=== PATIENT | female | born 1960 | race Caucasian/White ===

== ENCOUNTER 2020-01-08 23:16 | Inpatient (IN) | payer MEDICARE ==
[~2020-01-08] VITALS: Ht 157.5 cm; Wt 75.5 kg
--- NOTE | 2020-01-08 23:21 | PHYS DOC ---
Past History Past Medical History: Anemia, Diabetes, Fibromyalgia, High Cholesterol, Hypertension Adult General Chief Complaint Chief Complaint: ".. I .. having some low.. sugar levels.. dizzy.. I have had some diarrhea the last couple days. .. I ve been taking... glimepride.. for my diabetes.. .. I don't know the.. dosage... I did..nt bring the bottle.. I am so weak.. "I..feel like maybe flu.. like.." HPI HPI Patient is a 59 year old female who presents with above hx and complaints of hypoglycemia and generalized weakness.. 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 However by time of arrival glucose again at 49. Patient reports compliance with diet and meds for diabetes. No recent travel or specific ill contacts. No history immunosuppression. Patient reports couple days of loose stool. No history of bad food intake. Pt. normally follows with Dr. Carrero. Review of Systems Review of Systems Constitutional: Subjective complaints of fever and chills Eyes: Denies change in visual acuity, redness, or eye pain [] HENT: Denies nasal congestion or sore throat [] Respiratory: Complaints of a nonproductive cough and some shortness of breath/wheezing Cardiovascular: No additional information not addressed in HPI [] GI: Denies abdominal pain, complaints of nausea, denies vomiting, bloody stools. Complaints of diarrhea [] : Complaints of dysuria and urinary retention Musculoskeletal: Complaints of generalized weakness and myalgia arthralgia and malaise Integument: Denies rash or skin lesions [] Neurologic: Denies headache, focal weakness or sensory changes [] Endocrine: History of polyuria or polydipsia [] All other systems were reviewed and found to be within normal limits, except as documented in this note. Family History Family History Diabetes hypertension Current Medications Current Medications See nursing for home meds Allergies Allergies See nursing Physical Exam Physical Exam Constitutional: Moderate acute distress, ill in appearance. [] HENT: Normocephalic, atraumatic, bilateral external ears normal, oropharynx dry, mild edema, postnasal drainage, no oral exudates, nose mild injection of turbinates with clear rhinorrhea[] Eyes: PERRLA, EOMI, conjunctiva normal, no discharge. [] Neck: Normal range of motion, no tenderness, supple, no stridor. [] Cardiovascular:Heart rate regular rhythm, no murmur, PMI to the left Lungs & Thorax: Bilateral breath sounds equal apexes with a few scattered wheezes on auscultation [] Abdomen: Bowel sounds hyperactive, soft, mild generalized tenderness, no masses, no pulsatile masses. [] Skin: Warm, dry, no erythema, no rash. Poor turgor Back: No tenderness, no CVA tenderness. [] Extremities: No tenderness, no cyanosis, no clubbing, ROM intact, no edema. [] Neurologic: Alert and oriented X 3, moves extremities on request. Does have distal sensory. No gross focal deficits noted. [] Psychologic: Affect anxious, judgement normal, mood normal. [] EKG EKG My interpretation EKG shows a sinus rhythm at 76 bpm. Slightly prolonged MO interval at 2 ms. Does have UA in V1 and 2. Does have artifact. No findings acute STEMI of contralateral changes.[] Radiology/Procedures Radiology/Procedures [][place] [id number] IMAGING REPORT Signed PATIENT: ALEXANDER RUIZ ACCOUNT: [id number] : 1960 LOCATION: ER AGE: 59 SEX: F EXAM STATUS: REG ER ORD. PHYSICIAN: MADYSON VERA MD REASON: Cough, hx CHF PROCEDURE: CHEST AP ONLY Chest AP portable at 1235: Reason for examination: Cough. History of congestive heart failure. Comparison is made to previous study dated 04/14/2006. Postop changes are again seen in the sternum. Heart and mediastinum are unchanged. Lung garcia show no acute congestion, infiltrates or pleural effusions. No acute bony abnormalities are seen. IMPRESSION: No acute cardiopulmonary disease evident. Electronically signed by: Tahmina Garcia MD (01/09/2020 12:45 AM) [id number] DICTATED AND SIGNED BY: TAHMINA GARCIA MD DATE: 01/09/20 0045 CC: MADYSON VERA MD; JUANITA CARRERO MD ~ Course & Med Decision Making Course & Med Decision Making Pertinent Labs and Imaging studies reviewed. (See chart for details) While in the emergency department patient received fluid boluses and multiple doses of glucose with recurrent episodes of hypoglycemia. Will admit to Dr. Hendricks for further eval . and tx. Supplement hypokalemia and magnesium. Critical care 90 min. Impression: 1. Recurrent Hypoglycemia 2. DM 3. Dehydration 4. Hypokalemia 2.8 5. Hypomagnesium 1.7 6. Anemia with Macrocytic Indices Hgb 11.6/ MCV 103 7. Viral Syndrome [] Dragon Disclaimer Dragon Disclaimer This electronic medical record was generated, in whole or in part, using a voice recognition dictation system. Departure Departure: Disposition: HOME/RESIDENCE PRIOR TO ADM Condition: STABLE Referrals: JUANITA CARRERO MD (PCP) Romie Disclaimer This chart was dictated in whole or in part using Voice Recognition software in a busy, high-work load, and often noisy Emergency Department environment. It may contain unintended and wholly unrecognized errors or omissions. Dragon Disclaimer This chart was dictated in whole or in part using Voice Recognition software in a busy, high-work load, and often noisy Emergency Department environment. It may contain unintended and wholly unrecognized errors or omissions. MADYSON VERA MD Jan 08, 2020 23:21
[2020-01-08] MEDS ORDERED: ONDANSETRON PF 4 MG/2 ML VIAL. ONE (23:41)
[2020-01-08] MEDS ORDERED: IV RINGERS SOLUTION,LACTATED 1,000 ML IV SCH (23:53)
[2020-01-09 00:04] LABS: BASO % 0 % (0-3); EOS % 1 % (0-3); HEMOGLOBIN 11.6 g/dL (12.0-15.5); LYMPH # 0.5 x10^3/uL (1.0-4.8); LYMPH % 10 % (24-48); MEAN CORPUSCULAR HEMOGLOBIN 35 pg (25-35); MEAN CORPUSCULAR HGB CONC 34 g/dL (31-37); MEAN CORPUSCULAR VOLUME 103 fL (79-100); MONO # 0.3 x10^3/uL (0.0-1.1); MONO % 6 % (0-9); NEUT # 4.6 x10^3uL (1.8-7.7); NEUT % 83 % (31-73); PLATELET COUNT 148 x10^3/uL (140-400); RED BLOOD COUNT 3.29 x10^6/uL (3.50-5.40); RED CELL DISTRIBUTION WIDTH 12.8 % (11.5-14.5); WHITE BLOOD COUNT 5.5 x10^3/uL (4.0-11.0)
[2020-01-09 00:21] LABS: ALBUMIN 3.1 g/dL (3.4-5.0); CALCIUM 8.1 mg/dL (8.5-10.1); CREATININE 0.8 mg/dL (0.6-1.0); DIRECT BILIRUBIN 0.1 mg/dL (0.0-0.2); GFR 73.2; MAGNESIUM 1.7 mg/dL (1.8-2.4); TOTAL BILIRUBIN 0.2 mg/dL (0.2-1.0); TOTAL PROTEIN 6.3 g/dL (6.4-8.2)
[2020-01-09 00:23] LABS: POTASSIUM 2.8 mmol/L (3.5-5.1)
[2020-01-09] MEDS ORDERED: DEXTROSE 50% 25 GM / 50ML DISP.SYRIN. IV ONE ×2 (00:24→00:45)
[2020-01-09] MEDS ORDERED: IV DEXTROSE 5%-LACT RINGERS 1,000 ML IV ONE ×2 (00:30→01:00)
[2020-01-09] MEDS ORDERED: ACETAMINOPHEN 325 MG TABLET PO PRN (00:45)
[2020-01-09] MEDS ORDERED: ONDANSETRON PF 4 MG/2 ML VIAL. IVP ONE (00:45)
[2020-01-09] MEDS ORDERED: ONDANSETRON PF 4 MG/2 ML VIAL. IVP PRN (00:45)
--- NOTE | 2020-01-09 00:48 | RAD ---
Chest AP portable at 1235: Reason for examination: Cough. History of congestive heart failure. Comparison is made to previous study dated 04/14/2006. Postop changes are again seen in the sternum. Heart and mediastinum are unchanged. Lung garcia show no acute congestion, infiltrates or pleural effusions. No acute bony abnormalities are seen. IMPRESSION: No acute cardiopulmonary disease evident. Electronically signed by: Tahmina Berkowitz MD (01/09/2020 12:45 AM) [id number]
[2020-01-09 00:51] LABS: BARBITURATES NEG (NEG); BENZODIAZEPINES POS (NEG); CANNABINOIDS NEG (NEG); COCAINE NEG (NEG); METHADONE NEG (NEG); OPIATES POS (NEG); PHENCYCLIDINE NEG (NEG)
[2020-01-09 00:54] LABS: AMPHETAMINE/METHAMPHETAMINE NEG (NEG)
[2020-01-09 00:55] LABS: BACTERIA,URINE 0 /HPF (0-FEW); BILIRUBIN,URINE NEG (NEG); CLARITY,URINE CLEAR; COLOR,URINE STRAW; GLUCOSE,URINE NEG (NEG); NITRITE,URINE NEG (NEG); RBC,URINE OCC /HPF (0-2); SQUAMOUS EPITHELIAL CELL,UR OCC /LPF; UROBILINOGEN,URINE 0.2 mg/dL (0.2 mg/dL); WBC,URINE OCC /HPF (0-4)
[2020-01-09] MEDS ORDERED: POTASSIUM CHLORIDE 20 MEQ TABLET.ER. PO ONE (01:00)
[2020-01-09] MEDS ORDERED: AZITHROMYCIN 250 MG TABLET. PO ONE (01:00)
[2020-01-09] MEDS ORDERED: MAGNESIUM SULFATE 2GM 50 ML IV ONE (01:00)
[2020-01-09] MEDS ORDERED: AZITHROMYCIN 250 MG TABLET. ONE (01:04)
[2020-01-09] MEDS: POTASSIUM CHLORIDE 20MEQ 100 ML IV SCH ×2 (01:15→02:58)
[2020-01-09 01:39] LABS: INFLUENZA A PATIENT NEGATIVE (NEGATIVE); INFLUENZA B PATIENT NEGATIVE (NEGATIVE)
[2020-01-09] MEDS: DEXTROSE 50% 25 GM / 50ML DISP.SYRIN. IV PRN ×2 (01:53→11:52)
--- NOTE | 2020-01-09 02:15 | NUR ---
Pt was admit to [address] [place] [address] from ER via [facility], accompanied by EMS and nursing staff. Pt self transferred from [facility] to bed with stand-by assist, steady gait noted. Admission assessment completed. Pt A&Ox4, pleasant and cooperative. Pt currently denies pain or discomfort. Health history & home medications reviewed with pt. Pt lives home with . SCD for VTE. Pt refused Flu vaccine. Pt was given written information regarding hospital policies, unit procedures and contact persons. Valuables were checked and left at bedside. Pt denied need fro HS snack but did ask for juice. POCT glucose taken with result of 88. Call light within hand, will continue to monitor.
[2020-01-09 02:25] VITALS: BP 138/78
[2020-01-09] MEDS ORDERED: GLIM4TAB8 PO (02:54)
[2020-01-09] MEDS ORDERED: ERGO2500 PO (02:54)
[2020-01-09] MEDS ORDERED: HYDR-2765 PO (02:54)
[2020-01-09] MEDS ORDERED: CRESTOR10 MG PO (02:54)
[2020-01-09] MEDS ORDERED: MISO200T PO (02:54)
[2020-01-09] MEDS ORDERED: METH-38 PO (02:54)
[2020-01-09] MEDS ORDERED: HYDR200T5 PO (02:54)
[2020-01-09] MEDS ORDERED: POTA20TA4 PO (02:54)
[2020-01-09] MEDS ORDERED: FLUO20CA20 PO (02:54)
[2020-01-09] MEDS ORDERED: ALPR1TAB6 PO (02:54)
[2020-01-09] MEDS ORDERED: OXYC80TA16 PO (02:54)
[2020-01-09] MEDS ORDERED: NAPR-514 PO (02:54)
--- NOTE | 2020-01-09 03:25 | EKG ---
[address] [address] Test Date: 2020-01-09 Test Time: 00:41:08 Pat Name: ALEXANDER RUIZ Department: Room: Gender: F Ob/Gyn: : 1960 Requested By: MADYSON VERA Order Number: [id number] Reading MD: Measurements Intervals Darby Rate: 76 P: 0 GA: 232 QRS: 18 QRSD: 96 T: 21 QT: 418 QTc: 475 Interpretive Statements SINUS RHYTHM PROLONGED GA INTERVAL PROLONGED QT ABNORMAL ECG RI6.01 No previous ECG available for comparison
[2020-01-09] MEDS: IPRATRPIUM/ALBUTEROL 0.5/2.5MG 3 ML NEBU. NEB SCH ×3 (04:46→22:11)
[2020-01-09 05:09] VITALS: BP 98/59
[2020-01-09] MEDS ORDERED: AZITHROMYCIN 250 MG TABLET. PO SCH (09:00)
[2020-01-09] MEDS: MISOPROSTOL 200 MCG PO SCH ×2 (09:00→22:17)
[2020-01-09] MEDS ORDERED: METHOCARBAMOL 500 MG TABLET PO SCH ×2 (09:00→10:30)
[2020-01-09] MEDS ORDERED: FLUoxetine HCL 20 MG CAPSULE PO SCH (09:00)
[2020-01-09] MEDS: PRENATAL MULTIVITAMIN TABLET. PO SCH (09:00)
[2020-01-09] MEDS ORDERED: ALPRAZolam 0.5 MG TABLET PO SCH (09:00)
[2020-01-09] MEDS ORDERED: POTASSIUM CHLORIDE 20 MEQ TABLET.ER. PO SCH (09:00)
[2020-01-09] MEDS ORDERED: HYDROXYCHLOROQUINE 200 MG TABLET PO SCH (09:00)
[2020-01-09] MEDS ORDERED: GLIMEPIRIDE 4 MG PO SCH (09:00)
[2020-01-09] MEDS ORDERED: oxyCODONE ER 40 MG TAB.ER.12H PO SCH (09:00)
[2020-01-09] MEDS: oxyCODONE ER 20 MG TAB.ER.12H PO SCH ×3 (10:02→22:18)
[2020-01-09] MEDS: POTASSIUM CHLORIDE 20 MEQ TABLET.ER. PO SCH (10:03)
[2020-01-09 11:20] VITALS: BP 132/72
[2020-01-09 11:56] LABS: CALCIUM 8.2 mg/dL (8.5-10.1); CREATININE 0.7 mg/dL (0.6-1.0); GFR 85.4; POTASSIUM 3.9 mmol/L (3.5-5.1)
[2020-01-09] MEDS: IV DEXTROSE 10% 1,000 ML IV SCH (12:00)
[2020-01-09] MEDS: METHOCARBAMOL 500 MG TABLET PO SCH ×2 (12:26→23:58)
[2020-01-09 15:00] VITALS: BP 112/65
--- NOTE | 2020-01-09 15:43 | HP ---
ADMIT DATE: 01/09/2020 HISTORY OF PRESENT ILLNESS: The patient is a 59-year-old female patient who came to the Emergency Room with a complaint of being dizzy, low blood sugar, has had some diarrhea over the last 2 days. She apparently has had 2 bowel movements. She apparently woke up incontinent in her bed twice and she went to the bathroom and she seemed to have syncopal episode. According to her, found her on the floor and he called the ambulance and was brought to the Emergency Room for further evaluation and treatment. Her blood sugar on Paramedics arrival was only 49 and she received 15 grams glucose and her blood sugar went up to 112. By the time she arrived again to the Emergency Room, her blood sugar was only 49. The patient reported compliance with diet and medication for diabetes. There was no recent travel or specific ill contact. No history of immunosuppression. She does have multiple loose stools. She was again evaluated in the Emergency Room and her lab work showed that the patient continues to be hypoglycemic and had low blood sugar and she has also severe hypokalemia and hypomagnesemia, although she does not seem to be dehydrated. Otherwise, her CBC was normal. Her toxic screen was positive for opiates and benzodiazepine. Urinalysis was essentially unremarkable and influenza A and B were negative. She was admitted to continue with IV antibiotic as well as monitor her blood sugar and replenish her potassium and magnesium. PAST MEDICAL HISTORY: Significant for type 2 diabetes mellitus, which she is on glimepiride for more than 10 years according to her. She is also known to have hyperlipidemia. She has tricuspid regurgitation and atrial septal defect, osteoarthritis. She also has systemic lupus and fibromyalgia. PAST SURGICAL HISTORY: Significant for tricuspid valve repair and atrial septal defect repair. She has also tubal ligation. ALLERGIES: She is allergic to SUCRALFATE. MEDICATIONS: She is currently on following medications: She is on hydroxychloroquine sulfate 200 mg twice a day, methocarbamol 750 mg 3 times a day, Crestor 10 mg at bedtime, naproxen 500 mg twice a day, hydrocodone/APAP 7.5/325 one tablet every 4 hours, OxyContin 80 mg 3 times a day, fluoxetine 20 mg daily and alprazolam 1 mg 4 times a day, potassium chloride 40 mEq once a day, misoprostol 200 mg twice a day, glimepiride 4 mg daily and vitamin D2 1.25 mg with 2500 units twice weekly. FAMILY HISTORY: She has 2 brothers and 1 sister, all younger and seemingly healthy. Her ____ at the age of 72 because of CVA. ____ is still alive at the age of 82 and apparently healthy. SOCIAL HISTORY: She is , has 3 sons and 2 daughters. She never smoked, does not drink alcohol or use any drugs. She is on disability. She used to work at [employer] REVIEW OF SYSTEMS: The patient denied any blurring of vision, cataract, glaucoma or macular degeneration. Denied any earache, tinnitus or sensorineural deafness. Denied any nosebleeds, stuffy nose or postnasal drip. Denied any sore throat, sore tongue, toothache, hoarseness of voice or difficulty swallowing. She does have some nausea, but no vomiting, has had multiple episodes of diarrhea. Denied any dysuria, frequency or hematuria. Denied any chest pain, shortness of breath, orthopnea, paroxysmal nocturnal dyspnea. Denied any cough, phlegm or hemoptysis. Did complain of being dizzy and lightheaded. PHYSICAL EXAMINATION: GENERAL: On arrival to the Emergency Room, she looked well and was clearly in no apparent respiratory distress. No pallor, jaundice, cyanosis or thyromegaly. No jugular venous distention. No limb edema. VITAL SIGNS: Her heart rate was 88, blood pressure was 132/47, temperature 97.8, respiratory rate 22, and oxygen saturation was 99%. HEAD, EYES, EARS, NOSE AND THROAT: Normocephalic, atraumatic. NECK: Supple. HEART: Showed normal first and second heart sounds. No gallop or murmur. CHEST: Clear to auscultation. No crepitation or rhonchi. ABDOMEN: Distended, soft, nontender. NEUROLOGIC: She was awake, alert, responding appropriately. All cranial nerves intact. EXTREMITIES: She moves extremities without difficulty. She normally ambulates without assistance or assistive devices. IMAGING DATA: While in the Emergency Room, she had an EKG done, which showed that she was in sinus rhythm at a rate of 76 beats per minute, slightly prolonged OR interval at 2 milliseconds. Does have U wave in V1 and V2. Does have artifacts, no finding of acute ST segment elevation myocardial infarction. Her EKG showed no acute cardiopulmonary disease. LABORATORY DATA: Her lab work showed her white cell count to be 5500, hemoglobin 11.6, hematocrit 34, MCV 103 and platelet count of 148,000. Her chemistry showed a serum sodium 141, potassium 2.8, chloride 105, bicarbonate 25, anion gap of 11, BUN 8, creatinine 0.8, estimated GFR was 73 mL per minute. Her glucose was 74, calcium was 8.1, magnesium was 1.7. Total bilirubin, AST, ALT, alkaline phosphatase were normal. Total protein was 6.3, albumin was 3.1. Her urinalysis was essentially unremarkable and urine toxicology screen showed that the urine was positive for opiates and benzodiazepines. ASSESSMENT AND PLAN: In summary, the patient was admitted with what seems to be recurrent episode of hypoglycemia, hypokalemia and hypomagnesemia. Difficult to know whether she has really incontinence or diarrhea. She was started on IV Rocephin and Zithromax. I am not really convinced that there is any need for these antibiotics. As the patient continued to have episodes of hypoglycemia, we did start her on D10W continuously. We held her naproxen as well as her glimepiride. We will replenish her potassium and repeat her lab works again to make sure that potassium and magnesium ____. We will monitor her blood sugar closely. In fact, her lab work at the afternoon showed that her serum sodium was 142, potassium 3.9, chloride 110, bicarbonate 25, anion gap of 7, BUN 3, creatinine 0.7, estimated GFR was 85 mL per minute. Her glucose was 42, calcium was 8.2. As her blood sugar continued to drift down, we did start her on D10W and we held her glimepiride. VALENTIN RINALDI MD DR: ALEJANDRA/jewel JOB#: [id number] / [id number]
[2020-01-09 19:01] VITALS: BP 101/64
[2020-01-09] MEDS ORDERED: LACTOBACILLUS RHAMNOSUS GG 1 CAPSULE. PO SCH (21:00)
[2020-01-09] MEDS: LACTOBACILLUS RHAMNOSUS GG 1 CAPSULE. PO SCH (21:00)
[2020-01-09] MEDS: HYDROXYCHLOROQUINE 200 MG TABLET PO SCH (22:17)
[2020-01-09] MEDS: ATORVASTATIN CALCIUM 20 MG TABLET PO SCH (22:18)
[2020-01-09 23:06] VITALS: BP 95/60
[2020-01-09] MEDS: ALPRAZolam 0.5 MG TABLET PO PRN (23:58)
[2020-01-10] MEDS: IV DEXTROSE 10% 1,000 ML IV SCH (00:01)
[2020-01-10] MEDS: HYDROcodone/APAP 7.5/325MG 1 TAB TABLET PO PRN ×3 (03:36→18:03)
[2020-01-10 05:07] VITALS: BP 106/63
[2020-01-10 07:16] LABS: BASO % 1 % (0-3); EOS # 0.1 x10^3/uL (0.0-0.7); EOS % 3 % (0-3); HEMATOCRIT 33.8 % (36.0-47.0); HEMOGLOBIN 11.1 g/dL (12.0-15.5); LYMPH # 1.5 x10^3/uL (1.0-4.8); LYMPH % 41 % (24-48); MEAN CORPUSCULAR HEMOGLOBIN 35 pg (25-35); MEAN CORPUSCULAR HGB CONC 33 g/dL (31-37); MEAN CORPUSCULAR VOLUME 105 fL (79-100); MONO # 0.4 x10^3/uL (0.0-1.1); MONO % 11 % (0-9); NEUT # 1.6 x10^3uL (1.8-7.7); NEUT % 44 % (31-73); PLATELET COUNT 132 x10^3/uL (140-400); RED BLOOD COUNT 3.21 x10^6/uL (3.50-5.40); RED CELL DISTRIBUTION WIDTH 12.9 % (11.5-14.5); WHITE BLOOD COUNT 3.7 x10^3/uL (4.0-11.0)
[2020-01-10 07:22] LABS: CALCIUM 8.4 mg/dL (8.5-10.1); CREATININE 0.8 mg/dL (0.6-1.0); GFR 73.2; POTASSIUM 4.3 mmol/L (3.5-5.1)
[2020-01-10] MEDS: METHOCARBAMOL 500 MG TABLET PO SCH ×3 (08:25→18:02)
[2020-01-10] MEDS: POTASSIUM CHLORIDE 20 MEQ TABLET.ER. PO SCH (08:25)
[2020-01-10] MEDS: LACTOBACILLUS RHAMNOSUS GG 1 CAPSULE. PO SCH ×2 (08:26→21:24)
[2020-01-10] MEDS: PRENATAL MULTIVITAMIN TABLET. PO SCH (08:26)
[2020-01-10] MEDS: ALPRAZolam 0.5 MG TABLET PO PRN ×2 (08:26→18:03)
[2020-01-10] MEDS: HYDROXYCHLOROQUINE 200 MG TABLET PO SCH ×2 (08:33→21:00)
[2020-01-10] MEDS: MISOPROSTOL 200 MCG PO SCH ×2 (08:33→21:27)
[2020-01-10] MEDS: CHOLECALCIFEROL (VITAMIN D3) 1,000 UNIT TABLET PO SCH (08:47)
[2020-01-10] MEDS ORDERED: AZITHROMYCIN 250 MG TABLET. PO SCH (09:00)
[2020-01-10] MEDS ORDERED: DEXTROSE 50% 25 GM / 50ML DISP.SYRIN. IV PRN (10:45)
[2020-01-10 12:00] VITALS: BP 110/58
[2020-01-10] MEDS: oxyCODONE ER 20 MG TAB.ER.12H PO SCH (12:21)
[2020-01-10] MEDS: INSULIN LISPRO 300 UNITS/3 ML VIAL. SQ SCH ×2 (12:28→17:00)
[2020-01-10] MEDS: MAGNESIUM OXIDE 400 MG TABLET PO SCH ×2 (14:40→21:23)
[2020-01-10 15:27] VITALS: BP 111/75
--- NOTE | 2020-01-10 17:30 | NUR ---
Pt's blood sugar remained stable throughout shift. Pt tolerating diet and medications. Pt stated she is ready to go home.
[2020-01-10 19:23] VITALS: BP 122/75
--- NOTE | 2020-01-10 20:47 | PN ---
DATE: SUBJECTIVE: The patient is sitting at the edge of the bed comfortably, in no apparent distress. On questioning her, she denied any complaints. Her blood sugar has finally made it to almost ____ on D10 and has been on this for almost 24 hours now. Her potassium has also improved to 4.3 from a low of 2.8. PHYSICAL EXAMINATION: GENERAL: When I examined her, she looked well and was clearly in no apparent respiratory distress. No pallor, jaundice, cyanosis or thyromegaly. No jugular venous distention. No lower limb edema. VITAL SIGNS: Her heart rate was 72, blood pressure was 112/65, temperature 97.8, respiratory rate 20 and oxygen saturation was 97%. HEAD, EYES, EARS, NOSE AND THROAT: Normocephalic and atraumatic. NECK: Supple. CARDIAC: Normal first and second heart sounds. No gallop or murmur. CHEST: Clear to auscultation. No crepitation or rhonchi. ABDOMEN: Distended, soft, nontender. NEUROLOGIC: She was awake, alert, responding appropriately. All cranial nerves are intact. She moves extremities without difficulty. She ambulates without assistance or assistive devices. Her intake was 2418, no output was recorded. LABORATORY DATA: Her lab work this morning showed white cell count of 3700, hemoglobin 11, hematocrit 33, MCV 105 and platelet count of 132,000. Her chemistry showed serum sodium 140, potassium 4.3, chloride 107, bicarbonate 27, anion gap of 6, BUN 2, creatinine 0.8, estimated GFR was 73 mL per minute. Her glucose was ____, calcium was 8.4. ASSESSMENT: 1. Recurrent episode of hypoglycemia, improved. We held her Amaryl and she was actually on D10W at 30 mL per hour. 2. Hypokalemia, resolved. Her serum sodium has risen from 2.8-4.3. 3. Hypomagnesemia, resolved. The patient has multiple other medical problems including: A. Type 2 diabetes mellitus. B. Hyperlipidemia. C. Systemic lupus erythematosus. D. Fibromyalgia. PLAN: My plan is to switch her to a low dose sliding scale before meals today, start her on oral regular diet and if her blood sugar remains stable, she can be discharged home probably with reduced dose of Amaryl. VALENTIN RINALDI MD DR: Ralph JOB#: [id number] / [id number]
[2020-01-10] MEDS: ATORVASTATIN CALCIUM 20 MG TABLET PO SCH (21:23)
[2020-01-10 23:32] VITALS: BP 122/69
[2020-01-11] MEDS: oxyCODONE ER 20 MG TAB.ER.12H PO SCH ×2 (00:25→12:00)
[2020-01-11] MEDS: METHOCARBAMOL 500 MG TABLET PO SCH ×3 (00:25→12:00)
[2020-01-11] MEDS: ALPRAZolam 0.5 MG TABLET PO PRN ×2 (00:25→07:45)
[2020-01-11] MEDS: HYDROcodone/APAP 7.5/325MG 1 TAB TABLET PO PRN ×2 (01:31→07:47)
[2020-01-11 06:03] VITALS: BP 107/69
[2020-01-11 07:27] LABS: CALCIUM 9.1 mg/dL (8.5-10.1); CREATININE 0.8 mg/dL (0.6-1.0); GFR 73.2; MAGNESIUM 2.1 mg/dL (1.8-2.4)
[2020-01-11] MEDS: CHOLECALCIFEROL (VITAMIN D3) 1,000 UNIT TABLET PO SCH (07:45)
[2020-01-11] MEDS: LACTOBACILLUS RHAMNOSUS GG 1 CAPSULE. PO SCH (07:46)
[2020-01-11] MEDS: POTASSIUM CHLORIDE 20 MEQ TABLET.ER. PO SCH (07:47)
[2020-01-11] MEDS: PRENATAL MULTIVITAMIN TABLET. PO SCH (07:47)
[2020-01-11] MEDS: GLIMEPIRIDE 2 MG TABLET PO SCH ×2 (07:47→07:50)
[2020-01-11] MEDS: MAGNESIUM OXIDE 400 MG TABLET PO SCH (07:48)
[2020-01-11] MEDS: INSULIN LISPRO 300 UNITS/3 ML VIAL. SQ SCH ×2 (07:48→12:00)
[2020-01-11] MEDS: MISOPROSTOL 200 MCG PO SCH (07:56)
[2020-01-11] MEDS: HYDROXYCHLOROQUINE 200 MG TABLET PO SCH (07:56)
[2020-01-11] MEDS ORDERED: GLIM2TAB7 PO (11:39)
[2020-01-11 12:01] VITALS: BP 111/73
--- NOTE | 2020-01-11 12:15 | DS ---
DATE OF DISCHARGE: 01/11/2020 HOSPITAL COURSE: The patient is sitting in bed, in no apparent distress, awake, alert. On questioning her, denied any complaint. The nursing staff did not voice any concern. Her blood sugar has been stable, has had no further episodes of hypoglycemia, we cut down her glimepiride to 2 mg. Her lab work has improved. Her potassium has normalized and today it is 4 mEq per liter and magnesium has also normalized at 2.1 this morning. The patient has been up and about, has no further syncopal episode and no diarrhea, and a decision was made to discharge her home with only 2 mg of glimepiride. I advised her to continue to follow with her primary care physician, Dr. Yasmeen Gordon and that she has any further episode of hypoglycemia, she might have to cut that down. PHYSICAL EXAMINATION: GENERAL: When I examined her this morning, she looked well and was clearly in no apparent respiratory distress. No pallor, jaundice, cyanosis or thyromegaly. No jugular venous distention. No limb edema. VITAL SIGNS: Her heart rate was 87, blood pressure was 107/69, temperature was 98, respiratory rate was 16, and oxygen saturation was 97%. HEAD, EYES, EARS, NOSE AND THROAT: Showed normocephalic, atraumatic. NECK: Supple. HEART: Showed normal first and second heart sounds. No gallop, rub, or murmurs. CHEST: Clear to auscultation. No crepitation or rhonchi. ABDOMEN: Distended, soft, nontender. NEUROLOGIC: She is grossly intact. LABORATORY DATA: This morning showed a serum sodium of 138, potassium 4, chloride 103, bicarbonate 28, anion gap of 7, BUN 6, creatinine 0.8, estimated GFR was 73 mL per minute. Her glucose 154, calcium was 9.1, magnesium was 2.1. White cell count was 3700, hemoglobin 11, hematocrit 33, MCV 105 and platelet count of 132,000. DISCHARGE MEDICATIONS: The patient was discharged home to continue on glimepiride 2 mg once a day, alprazolam 1 mg 4 times a day, vitamin D2, ergocalciferol 2500 units twice weekly, fluoxetine 20 mg daily, hydrocodone/APAP 7.5/325 one tablet every 4 hours, hydroxychloroquine sulfate 200 mg twice a day, methocarbamol for Robaxin 1000 mg 3 times a day, misoprostol for Cytotec 200 mg twice a day, naproxen 500 mg twice a day, OxyContin 80 mg 3 times a day, potassium chloride 40 mEq once a day, Crestor 10 mg at bedtime. FINAL DISCHARGE DIAGNOSES: 1. Recurrent hypoglycemia, resolved. Her Amaryl was cut down to 2 mg. 2. Hypokalemia, resolved. Her serum potassium is up to 4. 3. Hypomagnesemia, resolved. Her serum magnesium was up to 2.1. 4. Other medical problems include: A. Type 2 diabetes mellitus. B. Hyperlipidemia. C. Systemic lupus erythematosus. D. Fibromyalgia. VALENTIN RINALDI MD DR: ALEJANDRA/jewle JOB#: [id number] / [id number]
--- NOTE | 2020-01-11 13:00 | NUR ---
Pt discharged to home. Instructions given and pt stated understanding. No questions or concerns.
== END 2020-01-11 13:00 | disposition home or self-care (01) | DRG 639 ==
LOC: ER 23:16 → 1 SOUTH 01-09 00:30
PROVIDERS: ADMIT Internal Medicine; ATTEND Internal Medicine
DX: E11.649 Type 2 diabetes mellitus with hypoglycemia without coma (principal); M79.7 Fibromyalgia; E78.00 Pure hypercholesterolemia, unspecified; I11.0 Hypertensive heart disease with heart failure; I50.9 Heart failure, unspecified; E86.0 Dehydration; E87.6 Hypokalemia; E83.42 Hypomagnesemia; B34.9 Viral infection, unspecified; D64.9 Anemia, unspecified; E78.5 Hyperlipidemia, unspecified; I07.1 Rheumatic tricuspid insufficiency; M32.9 Systemic lupus erythematosus, unspecified; M19.90 Unspecified osteoarthritis, unspecified site; Z87.74 Personal history of (corrected) congenital malformations of heart and circulatory system; Z83.3 Family history of diabetes mellitus; Z82.49 Family history of ischemic heart disease and other diseases of the circulatory system; Z82.3 Family history of stroke; Z98.51 Tubal ligation status; Z88.8 Allergy status to other drugs, medicaments and biological substances
CPT/HCPCS: 36415; 71045; 80048; 80076; 80307; 81001; 82550; 82947; 83735; 83880; 84443; 84484; 85025; 87804; 93005; 94640; J0456; J0696; J1815; J2405; J3475; J3480; J7120

== ENCOUNTER → 2020-07-01 | Outpatient (CLI) | payer MEDICARE ==
[~2020-07-01] MED LIST: ALPR1TAB6 PO; CRESTOR10 MG PO; ERGO2500 PO; FLUO20CA20 PO; GLIM2TAB7 PO; GLIM4TAB8 PO; HYDR-2765 PO; HYDR200T5 PO; METH-38 PO; MISO200T PO; NAPR-514 PO; OXYC80TA16 PO; POTA20TA4 PO
== END | disposition home or self-care (01) ==
LOC: LAB 15:26
PROVIDERS: ATTEND Obstetrics & Gynecology Female Pelvic Medicine and Reconstructive Surgery
DX: R30.0 Dysuria (principal)
CPT/HCPCS: 87086

== ENCOUNTER → 2020-09-02 | Outpatient (CLI) | payer MEDICARE | LOC: LAB 13:35 | PROVIDERS: ATTEND Obstetrics & Gynecology Female Pelvic Medicine and Reconstructive Surgery | DX: R30.0 Dysuria (principal) | CPT/HCPCS: 87086 ==